=== PATIENT | female | born 2000 | race Caucasian/White ===

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

== ENCOUNTER 2020-04-26 11:00 | Outpatient (CLI) | payer OTHER | END 2020-04-26 23:59 | disposition home or self-care (01) | LOC: LAB.R 11:00 | PROVIDERS: ATTEND Family Medicine | DX: N39.0 Urinary tract infection, site not specified (principal) | CPT/HCPCS: 87086; 87181 ==

== ENCOUNTER 2022-08-07 11:45 | Outpatient (CLI) | payer OTHER ==
[2022-08-07 20:48] LABS: CHLAMYDIA TRACHOMATIS DNA POSITIVE (NEGATIVE); NEISSERIA GONORRHOEAE DNA NEGATIVE (NEGATIVE)
[2022-08-07 22:26] LABS: BACTERIAL VAGINOSIS DNA POSITIVE (NEGATIVE); CANDIDA GROUP DNA NEGATIVE (NEGATIVE); CANDIDA KRUSEI DNA NEGATIVE (NEGATIVE); TRICHOMONAS VAGINALIS DNA NEGATIVE (NEGATIVE)
[2022-08-07 22:27] LABS: CANDIDA GLABRATA DNA NEGATIVE (NEGATIVE)
== END 2022-08-07 12:00 | disposition home or self-care (01) ==
LOC: LAB.N 11:45
PROVIDERS: ATTEND Registered Nurse
DX: Z20.2 Contact with and (suspected) exposure to infections with a predominantly sexual mode of transmission (principal)
CPT/HCPCS: 81514; 87491; 87591; 87661

== ENCOUNTER 2024-02-02 10:53 | Emergency (ER) | payer BC, OTHER ==
[2024-02-02 11:54] LABS: BASOPHILS % (AUTO) 0.4 %; EOSINOPHILS # (AUTO) 0.2 10^3/uL (0.0-0.7); EOSINOPHILS % (AUTO) 2.7 %; HCT - HEMATOCRIT 40.9 % (37.0-47.0); LYMPHOCYTES % (AUTO) 24.5 %; MEAN CORPUSCULAR HEMOGLOBIN 29.9 pg (27.0-31.0); MEAN CORPUSCULAR HGB CONC 34.2 g/dL (32.0-36.0); MEAN CORPUSCULAR VOLUME 87.4 fL (81.0-99.0); MEAN PLATELET VOLUME 9.7 fL (7.9-10.8); MONOCYTES # (AUTO) 0.5 10^3/uL (0.0-1.0); MONOCYTES % (AUTO) 5.8 %; NEUTROPHILS # (AUTO) 5.4 10^3/uL (1.5-6.6); NEUTROPHILS % (AUTO) 66.4 %; PLT - PLATELET COUNT 180 10^3/uL (130-450); RED BLOOD COUNT 4.68 10^6/uL (4.20-5.40); RED CELL DISTRIBUTION WIDTH 11.6 % (12.0-15.0)
[2024-02-02 11:57] LABS: BILIRUBIN,URINE NEGATIVE (NEGATIVE); GLUCOSE, URINE (UA) NEGATIVE (NEGATIVE); KETONES,URINE (UA) NEGATIVE (NEGATIVE); LEUKOCYTE ESTERASE, URINE NEGATIVE (NEGATIVE); NITRITE,URINE NEGATIVE (NEGATIVE); OCCULT BLOOD,URINE TRACE-LYSE (NEGATIVE); PROTEIN,URINE NEGATIVE (NEGATIVE); UROBILINOGEN,URINE 0.2 (NORMAL) E.U./dL (NORMAL)
[2024-02-02 11:57] LABS: WHITE BLOOD COUNT 8.1 x10^3/uL (4.8-10.8)
[2024-02-02 11:59] LABS: CLARITY,URINE CLEAR (CLEAR); HCG UR QUAL NEGATIVE
[2024-02-02 12:09] LABS: ALBUMIN 4.5 g/dL (3.2-5.5); ALBUMIN/GLOBULIN RATIO 1.7 (1.0-2.2); BILIRUBIN,TOTAL 0.5 mg/dL (0.2-1.0); CALCIUM 9.3 mg/dL (8.5-10.3); CREATININE 0.6 mg/dL (0.6-1.3); POTASSIUM 3.9 mmol/L (3.5-4.5); TOTAL PROTEIN 7.2 g/dL (6.4-8.9)
[2024-02-02 12:18] VITALS: BP 117/80
--- NOTE | 2024-02-02 12:44 | ED Physician Documentation ---
PD HPI ABD PAIN - Stated complaint Stated Complaint: RT PELVIC PX - Chief complaint Chief Complaint: Abd Pain - History obtained from History obtained from: Patient - Additional information Additional information: 23-year-old female presents with right lower pelvic pain for the last 3 days. It feels like a tugging sensation into her right lower back. She has no associated fever, feels nauseous at times but no vomiting is tolerating p.o. well, denies any diarrhea or constipation, no urinary symptoms and no vaginal discharge or concern for any STI. Patient did start her menstrual period today, and does sometimes have painful menstrual periods but this felt somewhat different. No history of ovarian cyst to her knowledge. She took 1000 mg of Tylenol this morning without relief. She states she was concerned about "cancer." Review of Systems Constitutional: reports: Reviewed and negative Eyes: reports: Reviewed and negative Ears: reports: Reviewed and negative Nose: reports: Reviewed and negative Throat: reports: Reviewed and negative Cardiac: reports: Reviewed and negative Respiratory: reports: Reviewed and negative GI: reports: Abdominal Pain, Nausea. 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: Other - Past Surgical History Past Surgical History: No - Present Medications Home Medications: Ambulatory Orders Medication Instructions Recorded Confirmed Naproxen [EC-Naproxen] 500 mg PO BID PRN #20 tab 02/02/24 Ondansetron Odt [Zofran] 4 mg TL Q6H PRN #10 tablet 02/02/24 - Allergies Allergies/Adverse Reactions: Allergies Allergy/AdvReac Type Severity Reaction Status Date / Time No Known Drug Allergies Allergy Verified 02/02/24 11:24 - Social History Does the pt smoke?: No Smoking Status: Never smoker Does the pt drink ETOH?: Yes Does the pt have substance abuse?: No Substance Use and Type: Marijuana - Immunizations Immunizations are current?: Yes - POLST Patient has POLST: No PD ED PE NORMAL - Vitals Vital signs reviewed: Yes - General General: Alert and oriented X 3, No acute distress, Well developed/nourished - HEENT HEENT: Atraumatic, Moist mucous membranes - Cardiac Cardiac: RRR, No murmur - Respiratory Respiratory: No respiratory distress, Clear bilaterally - Abdomen Abdomen: Normal bowel sounds, Soft, Non distended, Other (Mild low right pelvic tenderness without guarding. No peritoneal signs, no rigidity, no pain at McBurney's point, negative Jung sign) - Back Back: No CVA TTP, No spinal TTP - Derm Derm: Normal color, Warm and dry - Neuro Neuro: Alert and oriented X 3 Eye Opening: Spontaneous Motor: Obeys Commands Verbal: Oriented GCS Score: 15 - Psych Psych: Normal mood, Normal affect Results - Vitals Vitals: Vital Signs - 24 hr 02/02/24 02/02/24 02/02/24 11:20 12:10 14:05 Temperature 36.7 C Heart Rate 67 70 76 Respiratory 20 16 20 Rate Blood Pressure 121/89 H 117/80 117/80 O2 Saturation 99 97 100 Oxygen O2 Source Room air - Labs Labs: Laboratory Tests 02/02/24 02/02/24 02/02/24 11:40 11:45 11:45 WBC 8.1 RBC 4.68 Hgb 14.0 Hct 40.9 MCV 87.4 MCH 29.9 MCHC 34.2 RDW 11.6 L Plt Count 180 MPV 9.7 Neut # (Auto) 5.4 Lymph # (Auto) 2.0 [place] # (Auto) 0.5 Eos # (Auto) 0.2 Baso # (Auto) 0.0 Absolute Nucleated RBC 0.00 Nucleated RBC % 0.0 Sodium 136 Potassium 3.9 Chloride 106 Carbon Dioxide 25 Anion Gap 5.0 L BUN 8 Creatinine 0.6 Estimated GFR (MDRD) 122 Glucose 85 Calcium 9.3 Total Bilirubin 0.5 AST 14 ALT 8 L Alkaline Phosphatase 62 Total Protein 7.2 Albumin 4.5 Globulin 2.7 Albumin/Globulin Ratio 1.7 Lipase 46 Urine Color LT. YELLOW Urine Clarity CLEAR Urine pH 6.0 Ur Specific [place] <=1.005 Urine Protein NEGATIVE Urine Glucose (UA) NEGATIVE Urine Ketones NEGATIVE Urine Occult Blood TRACE-LYSE Urine Nitrite NEGATIVE Urine Bilirubin NEGATIVE Urine Urobilinogen 0.2 (NORMAL) Ur Leukocyte Esterase NEGATIVE Ur Microscopic Review NOT INDICATED Urine Culture Comments NOT INDICATED Urine HCG, Qual NEGATIVE - Rads (name of study) No standard instances Relevant Findings:: Final report received PD Medical Decision Making - ED course Complexity details: reviewed results, re-evaluated patient, considered differential, d/w patient ED course: 23-year-old female presents with right lower pelvic pain as described in HPI. Differentials considered included ovarian cyst, ovarian torsion, dysmenorrhea, UTI, ureteral stone, Appendicitis among others. The patient is very well- appearing here on physical exam, afebrile nontoxic no acute distress. She has mild reproducible pain deep low in the right pelvis, no peritoneal signs or rigid abdomen, no tenderness over McBurney's point or other abdominal tenderness. She is feeling hungry, and has not had any difficulty with p.o. intake. I obtained lab work which is reassuring including CBC and CMP, urinalysis not suggestive of infection. test is negative. We proceeded with a pelvic ultrasound to evaluate for ovarian torsion versus cyst and this was reassuring, negative. I have low suspicion for appendicitis based on patient's location of pain and lack of additional symptoms. I suspect this is related to menstrual period versus ovarian discomfort. At she denies any concern for STI and she has no signs of PID. She had significant relief in her symptoms with IV Toradol and therefore I think she is stable for discharge home at this time. Recommended continuing as needed NSAIDs, anticipate improvement in the next day or 2, discussed return precautions however if she show develop a fever or worsening pain or other new concerns. Departure - Departure Disposition: 01 Home, Self Care Clinical Impression: Dysmenorrhea Condition: Good Instructions: ED Pelvic Pain [facility] Prescriptions: Naproxen [EC-Naproxen] 500 mg PO BID PRN #20 tab PRN Reason: Abdominal Pain Ondansetron Odt [Zofran] 4 mg TL Q6H PRN #10 tablet PRN Reason: Nausea / Vomiting Comments: Your ultrasound today looked okay. No concerning findings. Your lab work is likewise reassuring. Think the pain is likely due to starting the menstrual period. We unfortunately cannot see things like endometriosis on x-ray or ultrasound or other imaging. If you have recurrent issues with Christopher menstrual pain, please follow-up with your primary doctor. In the meantime, I recommend that you take naproxen or ibuprofen starting 1 to 2 days before your period and throughout the first couple of days you have your period to reduce discomfort. You can also take Tylenol as needed. Medication sent to [facility] Forms: PCP List Discharge Date/Time: 02/02/24 14:07
[2024-02-02] MEDS: KETOROLAC 30 MG/ML VIAL IVP STA (12:59)
--- NOTE | 2024-02-02 14:10 | Ultrasound Report ---
PROCEDURE: Pelvic Complete INDICATIONS: pelvic pain, R TECHNIQUE: Real-time transabdominal scanning was performed of the pelvic organs, with image documentation. COMPARISON: None FINDINGS: Uterus: Uterus is retroverted and normal in size at 7.3 x 3.6 x 4.9 cm. The myometrium is homogeneo us. The endometrium measures 6.7 mm in combined thickness. There is no endometrial mass or fluid. Ovaries: The right ovary measures 2.4 x 2.1 x 3.4 cm, with a calculated ovarian volume of 8.5 cc. T he left ovary measures 3.3 x 1.7 x 2.9 cm, with a calculated ovarian volume of 8.1 cc. The ovaries h ave a normal sonographic appearance. Less than 12 follicles can be seen in each ovary. No adnexal m asses are seen. No cystic lesions measuring greater than 3 cm. Other: No free pelvic fluid. IMPRESSION: Unremarkable ultrasound examination of uterus and bilateral ovaries. No evidence of ovarian torsion. Reviewed by: Jarrett Chen MD on 02/02/2024 2:09 PM PDT Approved by: Jarrett Chen MD on 02/02/2024 2:09 PM PDT Station ID: [id number]
[2024-02-02 14:16] VITALS: O2SAT 100
== END 2024-02-02 14:07 | disposition home or self-care (01) ==
LOC: ED 10:53
DX: N94.6 Dysmenorrhea, unspecified (principal)
CPT/HCPCS: 36415; 80053; 81001; 81003; 81025; 83690; 85025; 87086; 96374; 99284